=== PATIENT | female | born 1980 | race Caucasian/White ===

== ENCOUNTER 2016-09-15 14:00 | Inpatient (IN) | payer OTHER ==
[~2016-09-15] VITALS: Ht 157.5 cm; Wt 104.2 kg
[2016-09-15 15:01] VITALS: BP 125/69; PULSE 89; RESP 19; Ht 157.5 cm; Wt 104.2 kg
[2016-09-15] MEDS ORDERED: MISOPROSTOL 200 MCG TAB PR PRN (15:30)
[2016-09-15] MEDS ORDERED: CARBOPROST 250 MCG INJ IM PRN (15:30)
[2016-09-15] MEDS ORDERED: BUTORPHANOL 2 MG INJ IV PRN (15:30)
[2016-09-15] MEDS ORDERED: IBUPROFEN 600 MG TAB PO PRN (15:30)
[2016-09-15] MEDS ORDERED: METHYLERGONOVINE 0.2 MG INJ IM PRN (15:30)
[2016-09-15] MEDS ORDERED: OXYTOCIN 30 UNITS/LR 500 ML IV PRN (15:30)
[2016-09-15] MEDS ORDERED: LIDOCAINE 1% (MPF) 30 ML INJ INJ PRN (15:30)
[2016-09-15] MEDS ORDERED: OXYTOCIN 30 UNITS/LR 500 ML IV SCH ×4 (15:30→17:00)
--- NOTE | 2016-09-15 16:40 | RADRPT ---
PROCEDURE: US OB. CLINICAL INDICATION: Size and dates , large for dates TECHNIQUE: Multiple sonographic images of the pelvis and gravid uterus were obtained. The images were reviewed on a PACS workstation. COMPARISON: No prior studies are available for comparison. FINDINGS: There is a single viable intrauterine gestation. Cardiac activity is present with 131 beats per min rincon. There is a vertex presentation. The placenta is anterior. There is no evidence for an abruption or placenta previa. Measurements were made in order to determine age. The results are as follows: BPD =9.4 cm HC =33 cm AC =37.1 cm FL =7.6 cm Estimated gestational age of approximately 39 weeks and 0 days based on ultrasound measurements. Clinical age: 38 weeks and 6 days. The estimated date of delivery is 09/22/16, based on ultrasound measurements. The EFW = 3892 g, 86.9%, based on LMP age. RPTAT: AA IMPRESSION: Single viable intrauterine gestation of approximately 39 weeks and 0 days based on ultrasound measu rements. .Hiren Gonzalez MD, MD Date Time Electronically viewed and signed by .Hiren Gonzalez MD, on 09/15/2016 16:40 .S/
[2016-09-15 16:56] LABS: BASOPHILS % 0.3 % (0.0-2.0); EOSINOPHILS # 0.1 10^3/ul (0.0-0.5); EOSINOPHILS % 1.4 % (0.0-7.0); HEMATOCRIT 40.7 % (37.0-47.0); HEMOGLOBIN 13.8 g/dl (12.0-16.0); LYMPHOCYTES # 1.6 10^3/ul (0.8-2.9); LYMPHOCYTES % 16.7 % (15.0-51.0); MEAN CORPUSCULAR HEMOGLOBIN 32.5 pg (29.0-33.0); MEAN CORPUSCULAR HGB CONC 33.9 g/dl (32.0-37.0); MEAN CORPUSCULAR VOLUME 95.9 fl (82.0-101.0); MEAN PLATELET VOLUME 8.4 fl (7.4-10.4); MONOCYTE # 0.7 10^3/ul (0.3-0.9); MONOCYTES % 6.8 % (0.0-11.0); NEUTROPHIL # 7.3 10^3/ul (1.6-7.5); NEUTROPHILS % 74.8 % (39.0-77.0); PLATELET COUNT 191 10^3/UL (140-440); RED BLOOD COUNT 4.25 10^6/ul (4.20-5.40); RED CELL DISTRIBUTION WIDTH 14.7 % (11.5-14.5); UNCORRECTED WBC 9.7 10^3/ul (4.8-10.8); WHITE BLOOD COUNT 9.7 10^3/ul (4.8-10.8)
[2016-09-15] MEDS: LACTATED RINGER'S 1,000 ML IV SCH ×2 (16:59→23:12)
[2016-09-15 17:00] LABS: CONDITION 1; LH ANALYZER COMMENTS 1
[2016-09-15 17:03] LABS: INR 0.95; PROTIME 12.7 Sec (12.2-14.2)
[2016-09-15 17:04] LABS: PARTIAL THROMBOPLASTIN TIME 27.2 Sec (25.0-35.0)
[2016-09-15] MEDS ORDERED: LACTATED RINGER'S 1,000 ML IV PRN (21:00)
[2016-09-16] MEDS ORDERED: FENTAnyl 2MCG/ML-ROPIV 0.2% 100 ML ONE (04:47)
[2016-09-16] MEDS: LACTATED RINGER'S 1,000 ML IV SCH (05:24)
--- NOTE | 2016-09-16 12:10 | LDN ---
Date/Time of Note Date/Time of Note DATE: 09/16/16 TIME: 12:09 Delivery Summary Assisted Vaginal Delivery: Vacuum Placenta Delivered: Spontaneously Meconium: none Perineum intact?: No Perineal laceration: 1 Perineal laceration repair: yes Anesthesia type: Epidural Estimated blood loss: 200 Sponge & Needle done & correct: Yes All needle counts correct: Yes Any foreign bodies felt in the: No Problems: Delivery Information Apgars 1 Minute: 8 5 Minute: 9 Suctioning Nose & mouth suctioned at deven: Yes Delee suction performed: Yes Umbilical Cord Umbilical cord with: 3 Vessels Cord presentations: no nuchal cord Cord Blood was obtained: Yes Mother & Baby Disposition Disposition Mom & Baby to Maternity; Good: Yes Baby to NICU: No KYMBERLY ESCOBEDO M.D. Sep 16, 2016 12:10
[2016-09-16] MEDS ORDERED: FENTAnyl 2MCG/ML-ROPIV 0.2% 100 ML BAG EPI SCH (12:30)
[2016-09-16] MEDS ORDERED: HYDROmorphONE 1 MG/ML SYG IV PRN ×2 (12:30)
[2016-09-16] MEDS ORDERED: DIPHENHYDRAMINE 50 MG INJ IV PRN (12:30)
[2016-09-16] MEDS ORDERED: ONDANSETRON 4 MG INJ IV PRN (12:30)
[2016-09-16] MEDS ORDERED: ZOLPIDEM 5 MG TAB PO PRN ×2 (12:30→15:00)
[2016-09-16] MEDS ORDERED: NALOXONE (0.4 MG/ML) INJ IV PRN (12:30)
[2016-09-16 13:35] VITALS: BP 110/56; PULSE 72; RESP 18
[2016-09-16] MEDS: LACTATED RINGER'S 1,000 ML IV* SCH ×2 (14:54→22:43)
[2016-09-16] MEDS ORDERED: MISOPROSTOL 200 MCG TAB PR PRN (15:00)
[2016-09-16] MEDS ORDERED: SENNA/DOCUSATE NA (8.6MG/50MG) TAB PO PRN (15:00)
[2016-09-16] MEDS ORDERED: METHYLERGONOVINE 0.2 MG INJ IM PRN (15:00)
[2016-09-16] MEDS ORDERED: OXYCODONE/ASPIRIN (4.88/325) TAB PO PRN (15:00)
[2016-09-16] MEDS ORDERED: BENZOCAINE 20% 56 ML SPRAY TOP PRN (15:00)
[2016-09-16] MEDS ORDERED: CARBOPROST 250 MCG INJ IM PRN (15:00)
[2016-09-16] MEDS ORDERED: WITCH HAZEL/GLYCERIN PAD PR PRN (15:00)
[2016-09-16] MEDS ORDERED: OXYTOCIN 30 UNITS/LR 500 ML IV PRN (15:00)
[2016-09-16] MEDS ORDERED: LANOLIN 7 GM TUBE TOP PRN (15:00)
[2016-09-16 16:00] VITALS: BP 104/59; PULSE 88; RESP 20
[2016-09-16] MEDS: IBUPROFEN 600 MG TAB PO SCH (18:14)
[2016-09-16 19:35] VITALS: BP 106/55; PULSE 77; RESP 18
[2016-09-16] MEDS: SENNA/DOCUSATE NA (8.6MG/50MG) TAB PO SCH (20:33)
[2016-09-16] MEDS: MAGNESIUM HYDROXIDE 30ML CUP PO SCH (20:33)
[2016-09-17] VITALS: BP 98/62; PULSE 80; RESP 18
[2016-09-17] MEDS: IBUPROFEN 600 MG TAB PO SCH ×5 (00:53→23:17)
[2016-09-17 04:00] VITALS: BP 103/56; PULSE 86; RESP 18
[2016-09-17] MEDS: LACTATED RINGER'S 1,000 ML IV* SCH (06:33)
[2016-09-17 08:05] VITALS: BP 105/63; PULSE 84; RESP 18
[2016-09-17] MEDS ORDERED: INFLUENZA VIRUS VACCINE 0.5 ML (DISPENSING) IM* ONE (09:00)
[2016-09-17] MEDS: SENNA/DOCUSATE NA (8.6MG/50MG) TAB PO SCH ×2 (09:03→21:06)
[2016-09-17] MEDS: MAGNESIUM HYDROXIDE 30ML CUP PO SCH ×2 (09:04→20:36)
[2016-09-17 10:21] LABS: HEMATOCRIT 39.1 % (37.0-47.0); HEMOGLOBIN 13.2 g/dl (12.0-16.0); MEAN CORPUSCULAR HEMOGLOBIN 33.1 pg (29.0-33.0); MEAN CORPUSCULAR HGB CONC 33.8 g/dl (32.0-37.0); PLATELET COUNT 181 10^3/UL (140-440); RED BLOOD COUNT 3.99 10^6/ul (4.20-5.40); RED CELL DISTRIBUTION WIDTH 14.8 % (11.5-14.5); WHITE BLOOD COUNT 11.4 10^3/ul (4.8-10.8)
[2016-09-17 10:22] LABS: BASOPHILS % 0.4 % (0.0-2.0); EOSINOPHILS # 0.3 10^3/ul (0.0-0.5); EOSINOPHILS % 2.2 % (0.0-7.0); LYMPHOCYTES # 2.6 10^3/ul (0.8-2.9); LYMPHOCYTES % 23.2 % (15.0-51.0); MEAN PLATELET VOLUME 10.9 fl (7.4-10.4); MONOCYTE # 1.3 10^3/ul (0.3-0.9); NEUTROPHIL # 7.1 10^3/ul (1.6-7.5); NEUTROPHILS % 62.3 % (39.0-77.0)
[2016-09-17 19:30] VITALS: BP 99/57; PULSE 82; RESP 20
[2016-09-18 04:20] VITALS: BP 97/51; PULSE 80; RESP 20
[2016-09-18] MEDS: IBUPROFEN 600 MG TAB PO SCH ×3 (05:11→17:34)
[2016-09-18 08:00] VITALS: BP 107/69; PULSE 83; RESP 20
[2016-09-18] MEDS: SENNA/DOCUSATE NA (8.6MG/50MG) TAB PO SCH (08:28)
[2016-09-18] MEDS: MAGNESIUM HYDROXIDE 30ML CUP PO SCH (08:28)
[2016-09-18] MEDS ORDERED: DIPHTH/TET/ACEL PERTUSS (ADULT) 0.5 ML VIAL IM* ONE (09:00)
--- NOTE | 2016-09-18 10:45 | QN ---
Documentation Comment Late Entry 09/17/16 PPD#1 is stable No VB +BM +VoidsNo sign of Depression VS stable GEn NAD Abd soft NT ND Genitalia No blood at perinium ---->Discharge Home KYMBERLY ESCOBEDO M.D. Sep 18, 2016 10:45
[2016-09-18 15:27] VITALS: BP 112/62; PULSE 76; RESP 18
== END 2016-09-18 18:44 | disposition home or self-care (01) | DRG 775 ==
LOC: L-D 14:32 → PP1 09-16 13:32
PROVIDERS: ADMIT Obstetrics & Gynecology; ATTEND Obstetrics & Gynecology
PROC: 10D07Z6 Extraction of Products of Conception, Vacuum, Via Natural or Artificial Opening (ICD-10-PCS; principal; 2016-09-16)
PROC: 0HQ9XZZ Repair Perineum Skin, External Approach (ICD-10-PCS; 2016-09-16)
DX: O70.0 First degree perineal laceration during delivery (principal); O66.5 Attempted application of vacuum extractor and forceps; Z3A.39 39 weeks gestation of pregnancy; Z37.0 Single live birth
CPT/HCPCS: 62319; 76815; 85025; 85610; 85730; 86592; 86900; 86901; 90686; 90715; 99464; J2590; J3010; J7120